=== PATIENT | female | born 1955 | race Caucasian/White ===

== ENCOUNTER 2018-08-03 06:39 | Day surgery (SDC) | payer OTHER ==
[~2018-08-03 06:39] MED LIST: AMBIEN10 MG PO; DUI500 PO; LOSARTAN POTASS50 MG PO; OMEPRAZOLE40 MG PO; SYNTHROID88 MCG PO; TRAM1TAB98 PO; TRAZ PO; [UNRECOGNIZED DRUG - OTHER] PO
[2018-08-03] MEDS ORDERED: DUI500 PO (12:59)
[2018-08-03] MEDS ORDERED: TRAM1TAB98 PO (12:59)
== END 2018-08-03 15:05 | disposition home or self-care (01) ==
LOC: CIR.AMB 06:39
DX: M23.321 Other meniscus derangements, posterior horn of medial meniscus, right knee (principal); M23.351 Other meniscus derangements, posterior horn of lateral meniscus, right knee; M23.341 Other meniscus derangements, anterior horn of lateral meniscus, right knee; M17.11 Unilateral primary osteoarthritis, right knee